=== PATIENT | male | born 1975 | race African-American/Black ===

== ENCOUNTER 2025-01-28 10:18 | Emergency (ER) | payer OTHER, SELFPAY | END 2025-01-28 11:20 | disposition home or self-care (01) | LOC: CSHERS 10:18 | DX: L73.9 Follicular disorder, unspecified (principal); E11.9 Type 2 diabetes mellitus without complications; F17.210 Nicotine dependence, cigarettes, uncomplicated | CPT/HCPCS: 99283 ==